=== PATIENT | male | born 1980 | race Two or more races ===

== ENCOUNTER 2017-09-07 23:36 | Emergency (ER) | payer BC ==
[2017-09-07 23:43] VITALS: TEMP 98.1
--- NOTE | 2017-09-08 00:05 | ED ---
Chest Pain HPI - General Chief Complaint: Chest Pain Stated Complaint: Chest Pain Time Seen by Provider: 09/07/17 23:47 Source: patient Mode of arrival: wheelchair Limitations: no limitations - History of Present Illness Initial Comments: This patient is a 37-year-old man who states that yesterday in the afternoon he had the onset of without was heartburn. He indicates the substernal and left side of his chest. He states that it felt somewhat heavy and somewhat burning. I did over the course today go towards his left shoulder and also towards his back. The patient states that the severity is moderate, the pain has been constant, and he has not noted worsening or relieving factors. He did feel a bit lightheaded tonight. He did have a similar episode to this in 2013 while he was in [place], and he was seen in the emergency department where they felt that it was stress related. He did have a stress test at that time which she was told was normal. MD Complaint: chest pain Onset/Timin -: hour(s) Onset: during rest Pain Location: substernal, left chest Pain Radiation: other (Left shoulder) Severity: moderate Quality: heaviness Consistency: constant Improves With: nothing Worsens With: nothing Other Symptoms: other (Lightheaded) Treatments Prior to Arrival: none - Related Data Home Medications Medication Instructions Recorded Confirmed Cyclobenzaprine [Flexeril] 10 mg PO HS 09/07/17 09/07/17 FLUoxetine HCL [PROzac] 80 mg PO DAILY 09/07/17 09/07/17 Allergies Allergy/AdvReac Type Severity Reaction Status Date / Time No Known Allergies Allergy Verified 09/07/17 23:43 Review of Systems ROS Statement: Those systems with pertinent positive or pertinent negative responses have been documented in the HPI. ROS Other: All systems not noted in ROS Statement are negative. Constitutional: Denies: fever, chills, weakness Respiratory: Denies: cough, dyspnea, wheezes Cardiovascular: Reports: chest pain. Denies: palpitations, orthopnea, edema, syncope Gastrointestinal: Denies: abdominal pain, nausea, vomiting Genitourinary: Denies: dysuria, hematuria Musculoskeletal: Denies: back pain Skin: Denies: rash Neurological: Denies: headache, weakness, numbness, paresthesias EKG Findings - EKG Results: EKG: interpreted by ERMD, WNL, sinus rhythm (Rate 75 bpm), normal axis, normal QRS, normal ST/T - NM, Pacemaker, Normal: Normal tracing: normal tracing Past Medical History Past Medical History: No Reported History History of Any Multi-Drug Resistant Organisms: None Reported Additional Past Surgical History / Comment(s): lasik, deviated septum sx. Past Psychological History: Anxiety, Depression, PTSD Smoking Status: Current every day smoker Past Alcohol Use History: Occasional Past Drug Use History: Marijuana General Exam Limitations: no limitations General appearance: alert, in no apparent distress Head exam: Present: atraumatic, normocephalic Eye exam: Present: normal appearance. Absent: scleral icterus, conjunctival injection Respiratory exam: Present: normal lung sounds bilaterally. Absent: respiratory distress, wheezes, rales, rhonchi, stridor, chest wall tenderness Cardiovascular Exam: Present: regular rate, normal rhythm, normal heart sounds. Absent: systolic murmur, diastolic murmur, rubs, gallop GI/Abdominal exam: Present: soft. Absent: distended, tenderness, guarding, rebound, mass Extremities exam: Present: normal inspection, normal capillary refill. Absent: pedal edema, calf tenderness Back exam: Present: normal inspection. Absent: CVA tenderness (R), CVA tenderness (L) Neurological exam: Present: alert Skin exam: Present: warm, dry, intact, normal color. Absent: rash Course Vital Signs 09/07/17 09/08/17 09/08/17 23:38 00:35 01:58 Temperature 98.1 F Pulse Rate 81 84 74 Respiratory 20 18 18 Rate Blood Pressure 180/105 145/91 144/92 O2 Sat by Pulse 98 99 Oximetry Disposition Clinical Impression: Chest pain Disposition: HOME SELF-CARE Condition: Good Instructions: Chest Pain (ED) Additional Instructions: As we discussed, follow-up to arrange the fasting lipid profile, and also to discuss having a stress test with the bench press operator. Return here if there is recurrence of symptoms or if there is any worsening or the symptoms we discussed develop. Referrals: Shivam Silvestre DO [Primary Care Provider] - 1-2 days
[2017-09-08 00:10] LABS: Basophils # (A) 0.1 k/uL (0-0.2); Basophils % (A) 1 %; CHCM 34.2; Eosinophils # (A) 0.2 k/uL (0-0.7); Eosinophils % (A) 2 %; HCT 47.2 % (39.0-53.0); HDW 2.65; HGB 16.9 gm/dL (13.0-17.5); Luc # (Auto) 0.27; Luc % (Auto) 2; Lymphocytes # (A) 5.4 k/uL (1.0-4.8); Lymphocytes % (A) 36 %; MCH 29.4 pg (25.0-35.0); MCHC 35.7 g/dL (31.0-37.0); MCV 82.3 fL (80.0-100.0); Mean Platelet Volume 7.2; Monocytes # (A) 0.5 k/uL (0-1.0); Monocytes % (A) 4 %; Neutrophils # (A) 8.4 k/uL (1.3-7.7); Neutrophils % (A) 57 %; RBC 5.74 m/uL (4.30-5.90); RDW 14.6 % (11.5-15.5); WBC 14.9 k/uL (3.8-10.6); WBC (Perox) 14.93
[2017-09-08] MEDS ORDERED: METOPROLOL TARTRATE 25 MG TAB PO STA (00:17)
[2017-09-08 00:35] LABS: Creatine Kinase 113 U/L (55-170)
[2017-09-08 00:37] VITALS: RESP 18
--- NOTE | 2017-09-08 00:41 | XR ---
EXAM: XR Chest, 2 Views CLINICAL HISTORY: Reason: Chest Pain TECHNIQUE: Frontal and lateral views of the chest. COMPARISON: No relevant prior studies available. FINDINGS: Lungs: Mild peribronchial airspace disease in the lower lobes, slightly worse on the left. No consolidation. Pleural space: Unremarkable. No pneumothorax. Heart: Unremarkable. No cardiomegaly. Mediastinum: Unremarkable. Bones/joints: Unremarkable. IMPRESSION: Findings suggest a mild component of peribronchial infiltrate in the lower lobes, query bronchiolitis.
[2017-09-08 00:49] LABS: Creatine Kinase MB 0.7 ng/mL (0.0-2.4); Troponin I <0.012 ng/mL (0.000-0.034)
[2017-09-08 01:28] LABS: Chloride 106 mmol/L (98-107); Non-African American GFR(MDRD) >60 (>60 ml/min/1.73 sqM); Sodium 140 mmol/L (137-145)
[2017-09-08 01:29] LABS: Anion Gap 14 mmol/L
[2017-09-08 01:37] LABS: Glucose 163 mg/dL (74-99)
[2017-09-08 01:38] LABS: Calcium 10.5 mg/dL (8.4-10.2); Carbon Dioxide 20 mmol/L (22-30); Total Bilirubin 0.4 mg/dL (0.2-1.3); Total Protein 8.2 g/dL (6.3-8.2)
[2017-09-08 01:39] LABS: Blood Urea Nitrogen 16 mg/dL (9-20); Magnesium 1.8 mg/dL (1.6-2.3)
[2017-09-08 01:40] LABS: ALT 68 U/L (21-72); AST 29 U/L (17-59); Alkaline Phosphatase 80 U/L (38-126)
[2017-09-08 01:59] VITALS: BP 144/92; PULSE 74
== END 2017-09-08 02:07 | disposition home or self-care (01) ==
LOC: EC 23:36
DX: R07.9 Chest pain, unspecified (principal); R42 Dizziness and giddiness; F32.9 Major depressive disorder, single episode, unspecified; F41.9 Anxiety disorder, unspecified; F17.200 Nicotine dependence, unspecified, uncomplicated; Z79.899 Other long term (current) drug therapy
CPT/HCPCS: 36415; 71020; 80053; 82550; 82553; 83735; 84484; 85025; 93005; 99285

== ENCOUNTER → 2018-09-29 | Outpatient (CLI) | payer OTHER ==
--- NOTE | 2018-09-30 14:37 | MR ---
EXAMINATION TYPE: MR lumbar spine wo/w con DATE OF EXAM: 09/29/2018 COMPARISON: NONE HISTORY: Pain CONTRAST: 10 mL Gadavist TECHNIQUE: T1 and T2 axial and sagittal, postcontrast T1 sagittal and axial images of the lumbar spi ne are submitted. FINDINGS: There is no abnormal signal seen within the visualized spinal cord or paraspinal soft tissu es. 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 At L2-3 there is no evidence of degenerative disc disease, disc herniation, canal stenosis, or forami nal encroachment. At L3-4 there is no evidence of degenerative disc disease, disc herniation, canal stenosis, or forami nal encroachment. At L4-5 there is no evidence of degenerative disc disease, disc herniation, canal stenosis, or forami nal encroachment. Facet arthropathy noted. At L5-S1 there is loss of disc signal with a broad-based large central and left paracentral disc iza iation with moderate effacement of thecal sac. There likely is compression of the exiting nerve root. Facet arthropathy noted. Could not exclude pars defect of L5. No spondylolisthesis. IMPRESSION: 1. At L5-S1 there is a broad-based large central and left paracentral disc herniation with moderate e ffacement of thecal sac. There likely is compression of the exiting nerve root.
== END | disposition home or self-care (01) ==
LOC: RADMRIMAIN 16:45
DX: M51.27 Other intervertebral disc displacement, lumbosacral region (principal)
CPT/HCPCS: 72158; A9585

== ENCOUNTER 2020-06-01 00:17 | Emergency (ER) | payer OTHER ==
[2020-06-01 00:31] VITALS: BP 158/69; PULSE 71; RESP 16; TEMP 98.5
[2020-06-01] MEDS ORDERED: HYDROcodone/APAP 5-325MG 1 EACH TAB PO STA (00:56)
[2020-06-01] MEDS ORDERED: methylPREDNISolone SOD SUCCI 125 MG/2 ML VIAL IM STA (00:56)
--- NOTE | 2020-06-01 01:11 | XR ---
EXAMINATION TYPE: XR lumbar spine 2 or 3V DATE OF EXAM: 06/01/2020 COMPARISON: NONE HISTORY: Back pain TECHNIQUE: 3 views FINDINGS: Lumbar vertebra have normal alignment. Posterior elements are intact. There is no compressi on fracture. Sacroiliac joints appear intact. There are no pathologic calcifications. IMPRESSION: Negative lumbar spine exam. No fracture.
[2020-06-01] MEDS ORDERED: ACET/COD 300 MG/30 MG STARTER PACK 6 TAB BTL PO STA (01:46)
--- NOTE | 2020-06-01 01:47 | ED ---
General Adult HPI - General Chief complaint: Back Pain/Injury Stated complaint: [facility] back injury Time Seen by Provider: 06/01/20 00:32 Source: patient, RN notes reviewed, old records reviewed Mode of arrival: ambulatory Limitations: no limitations - History of Present Illness Initial comments: 39-year-old male patient passed history chronic back pain proceeded evaluation. 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 Patient was that left her lumbar back pain radiating down since. Patient reports that today he twisted in bed and he had some more pain shooting down his left leg. Denies any saddle anesthesia loss bowel or bladder control any red flag symptoms. Systemic: Pt denies fatigue, fever/chills, rash. Pt denies weakness, night sweats, weight loss. Neuro: Pt denies headache, visual disturbances, syncope or pre-syncope. HEENT: Pt denies ocular discharge or irritation, otalgia, rhinorrhea, pharyngitis or notable lymphadenopathy. Cardiopulmonary: Pt denies chest pain, SOB, heart palpitations, dyspnea on exertion. Abdominal/GI: Pt denies abdominal pain, n/v/d. : Pt denies dysuria, burning w/ urination, frequency/urgency. Denies new onset urinary or bowel incontinence. MSK: Pt denies loss of strength or function in extremities. Neuro: Pt denies new onset weakness, paresthesias. - Related Data Home Medications Medication Instructions Recorded Confirmed Cyclobenzaprine [Flexeril] 10 mg PO HS 09/07/17 09/07/17 FLUoxetine HCL [PROzac] 80 mg PO DAILY 09/07/17 09/07/17 Previous Rx's Medication Instructions Recorded predniSONE 50 mg PO DAILY #5 tab 06/01/20 Allergies Allergy/AdvReac Type Severity Reaction Status Date / Time No Known Allergies Allergy Verified 06/01/20 00:31 Review of Systems ROS Statement: Those systems with pertinent positive or pertinent negative responses have been documented in the HPI. ROS Other: All systems not noted in ROS Statement are negative. Past Medical History Past Medical History: No Reported History Additional Past Medical History / Comment(s): chronic back pain, DDD, disc herniations History of Any Multi-Drug Resistant Organisms: None Reported Additional Past Surgical History / Comment(s): lasik, deviated septum sx. Past Psychological History: Anxiety, Depression, PTSD Smoking Status: Current every day smoker Past Alcohol Use History: Occasional Past Drug Use History: Marijuana General Exam - General Exam Comments Initial Comments: Constitutional: NAD, AOX3, Pt has pleasant affect. HEENT: NC/AT, trachea midline, neck supple, no lymphadenopathy. External ears appear normal, without discharge. Mucous membranes moist. Eyes PERRLA, EOM intact. There is no scleral icterus. No pallor noted. Cardiopulmonary: RRR, no murmurs, rubs or gallops, no JVD noted. Lungs CTAB in anterior and posterior zapata. No peripheral edema. Abdominal exam: Abdomen soft and non-distended. Neuro: CN II-XII grossly intact. No nuchal rigidity. MSK: 5/5 strength psoas and quadriceps muscles.. Sensation intact in upper and lower extremities. Full active ROM in upper and lower extremities, 5/5 stregnth. Limitations: no limitations Course Vital Signs 06/01/20 06/01/20 00:28 02:29 Temperature 98.5 F 98.5 F Pulse Rate 71 71 Respiratory 16 16 Rate Blood Pressure 158/69 158/69 O2 Sat by Pulse 99 99 Oximetry Medical Decision Making - Medical Decision Making 39-year-old male patient presents ED evaluation low back pain. Patient has a history of this. Patient will signs stable, afebrile. Physical exam displayed some tach strength and sensation. When film negative for acute process. Patient's symptoms improved analgesia as he does have some radicular symptoms to initiate lumbar steroid treatment will discharge the patient orthopedic follow- up. Case discussed with Dr. Hu. Disposition Clinical Impression: Lumbar back pain Disposition: HOME SELF-CARE Condition: Stable Instructions (If sedation given, give patient instructions): Acute Low Back Pain (ED) Additional Instructions: Follow-up with primary care provider tomorrow. Follow-up orthopedic consult tomorrow. Take steroids as directed. Return to ER if any worsening symptoms. Prescriptions: predniSONE 50 mg PO DAILY #5 tab Is patient prescribed a controlled substance at d/c from ED?: No Referrals: [facility],Clinic [Primary Care Provider] - 1-2 days Darren Palmer DO [Doctor of Osteopathic Medicine] - 1-2 days
[2020-06-01] MEDS ORDERED: KETOROLAC 15 MG/ML 1 ML VIAL IM STA (02:15)
== END 2020-06-01 02:30 | disposition home or self-care (01) ==
LOC: EC 00:17
DX: M54.5 Low back pain (principal); F41.9 Anxiety disorder, unspecified; F32.9 Major depressive disorder, single episode, unspecified; F17.200 Nicotine dependence, unspecified, uncomplicated; Z79.899 Other long term (current) drug therapy
CPT/HCPCS: 72100; 99284; 96372 ×2; J2930; J1885

== ENCOUNTER 2020-09-07 16:00 | Emergency (ER) | payer OTHER ==
[2020-09-07 16:04] VITALS: TEMP 98.3
--- NOTE | 2020-09-07 16:20 | ED ---
Chest Pain HPI - General Chief Complaint: Chest Pain Stated Complaint: chest pain/SOB Time Seen by Provider: 09/07/20 16:05 Source: patient Mode of arrival: wheelchair Limitations: no limitations - History of Present Illness Initial Comments: Patient is a 40-year-old male with past medical history of PTSD and chronic back pain who presents to the emergency department with reported presyncope and chest pain. Patient states that approximately one hour to hospital arrival the patient was having a bowel movement. States that he had been extremely stressed out from events that had happened earlier in the day. Does admit that he suffers from panic attacks. Reports that he began having tunnel vision and thought he was given a pass out. He started having palpitations, chest pain or shortness of breath. Patient denies full syncopal. episode Reports that since hospital arrival he feels much improved. Denies previous history of cardiac disease. No history of DVT or PE. Denies family history of premature cardiac . No associated nausea or vomiting. Denies abdominal pain. No black, tarry or sticky stools. No other alleviating, precipitating or modifying factors - Related Data Home Medications Medication Instructions Recorded Confirmed Cyclobenzaprine [Flexeril] 10 mg PO HS 09/07/17 09/07/17 FLUoxetine HCL [PROzac] 80 mg PO DAILY 09/07/17 09/07/17 Previous Rx's Medication Instructions Recorded predniSONE 50 mg PO DAILY #5 tab 06/01/20 LORazepam [Ativan] 0.5 mg PO TID PRN 3 Days #9 tab 09/07/20 Allergies Allergy/AdvReac Type Severity Reaction Status Date / Time No Known Allergies Allergy Verified 09/07/20 16:04 Review of Systems ROS Statement: Those systems with pertinent positive or pertinent negative responses have been documented in the HPI. ROS Other: All systems not noted in ROS Statement are negative. EKG Findings - EKG Comments: EKG Findings:: EKG demonstrates a sinus rhythm with a ventricular rate of 87.. ME interval 162. QRS 82. QTC of 425. No acute ST segment elevations or depressions concerning for ischemic changes Past Medical History Past Medical History: No Reported History Additional Past Medical History / Comment(s): chronic back pain, DDD, disc herniations History of Any Multi-Drug Resistant Organisms: None Reported Additional Past Surgical History / Comment(s): lasik, deviated septum sx. Past Psychological History: Anxiety, Depression, PTSD Smoking Status: Current every day smoker Past Alcohol Use History: Occasional Past Drug Use History: Marijuana General Exam Limitations: no limitations General appearance: alert, in no apparent distress Head exam: Present: atraumatic, normocephalic, normal inspection Eye exam: Present: normal appearance, PERRL, EOMI. Absent: scleral icterus, conjunctival injection, periorbital swelling ENT exam: Present: normal exam, mucous membranes moist Neck exam: Present: normal inspection. Absent: tenderness, meningismus, l ymphadenopathy Respiratory exam: Present: normal lung sounds bilaterally. Absent: respiratory distress, wheezes, rales, rhonchi, stridor Cardiovascular Exam: Present: regular rate, normal rhythm, normal heart sounds. Absent: systolic murmur, diastolic murmur, rubs, gallop, clicks GI/Abdominal exam: Present: soft, normal bowel sounds. Absent: distended, tenderness, guarding, rebound, rigid Extremities exam: Present: normal inspection, full ROM, normal capillary refill. Absent: tenderness, pedal edema, joint swelling, calf tenderness Back exam: Present: normal inspection Neurological exam: Present: alert, oriented X3, CN II-XII intact Psychiatric exam: Present: normal affect, normal mood Skin exam: Present: warm, dry, intact, normal color. Absent: rash Course Vital Signs 09/07/20 09/07/20 09/07/20 16:02 16:15 17:49 Temperature 98.3 F Pulse Rate 96 87 79 Respiratory 20 16 16 Rate Blood Pressure 184/112 124/85 O2 Sat by Pulse 99 98 99 Oximetry 09/07/20 18:05 Temperature 98.3 F Pulse Rate 79 Respiratory 16 Rate Blood Pressure 124/85 O2 Sat by Pulse 99 Oximetry Chest Pain MDM - MDM On arrival patient is placed in room 20. A thorough history and physical exam was performed. 12-lead EKG was performed. Laboratory studies are conducted the patient went for chest x-ray. Chest x-ray demonstrates no acute findings. Results are discussed the patient. We did repeat a blood pressure which is markedly improved. I discussed diagnosis, differential and treatment options. Patient is requesting something for anxiety to have at home. Patient will be given a limited prescription for Ativan. He is instructed on the proper use as well as the side effect profile. I did recommend that the patient have a repeat ultrasound of his heart. Patient states he has had recent stress testing within the past 3 years. He needs to see his primary care doctor in 2-4 days. Return to the emergency room for any new or worsening symptoms. Disposition Clinical Impression: Chest pain, Palpitations Disposition: HOME SELF-CARE Condition: Stable Instructions (If sedation given, give patient instructions): Chest Pain (ED) Additional Instructions: Please follow-up with your primary care doctor. I recommend a stress test and an echo. Return to the ED for any new or worsening symptoms. Prescriptions: LORazepam [Ativan] 0.5 mg PO TID PRN 3 Days #9 tab PRN Reason: Anxiety Is patient prescribed a controlled substance at d/c from ED?: Yes When asked, does pt state using other controlled substances?: No If prescribed controlled substance>3 days was MAPS reviewed?: Prescribed <3 Days Referrals: [facility],Clinic [Primary Care Provider] - 1-2 days Time of Disposition: 17:59
[2020-09-07 17:00] VITALS: RESP 16
[2020-09-07 17:01] LABS: Basophils # (A) 0.1 k/uL (0-0.2); Basophils % (A) 1 %; Eosinophils # (A) 0.1 k/uL (0-0.7); Eosinophils % (A) 1 %; HGB 16.3 gm/dL (13.0-17.5); Lymphocytes # (A) 2.6 k/uL (1.0-4.8); Lymphocytes % (A) 28 %; MCH 29.2 pg (25.0-35.0); MCHC 35.5 g/dL (31.0-37.0); MCV 82.3 fL (80.0-100.0); Mean Platelet Volume 7.3; Monocytes # (A) 0.4 k/uL (0-1.0); Monocytes % (A) 4 %; Neutrophils # (A) 6.1 k/uL (1.3-7.7); Neutrophils % (A) 65 %; Platelet Count 263 k/uL (150-450); RBC 5.59 m/uL (4.30-5.90); RDW 13.2 % (11.5-15.5); WBC 9.4 k/uL (3.8-10.6)
[2020-09-07 17:11] LABS: INR 0.9 (<1.2); Partial Thromboplastin Time 24.5 sec (22.0-30.0); Prothrombin Time 9.9 sec (9.0-12.0)
--- NOTE | 2020-09-07 17:11 | XR ---
EXAMINATION TYPE: XR chest 2V DATE OF EXAM: 09/07/2020 COMPARISON: 09/08/2017 HISTORY: Chest pain TECHNIQUE: FINDINGS: Heart and mediastinum are normal. Lungs are clear. Diaphragm is normal. Bony thorax appears normal. IMPRESSION: Normal chest. No change.
[2020-09-07 17:14] LABS: ALT 33 U/L (4-49); AST 23 U/L (17-59); African American GFR (CKD) >90 (>60 ml/min/1.73 sqM); Albumin 4.5 g/dL (3.5-5.0); Alkaline Phosphatase 66 U/L (38-126); Anion Gap 7 mmol/L; Blood Urea Nitrogen 12 mg/dL (9-20); Calcium 9.4 mg/dL (8.4-10.2); Carbon Dioxide 22 mmol/L (22-30); Chloride 110 mmol/L (98-107); Glucose 178 mg/dL (74-99); Lipase 149 U/L (23-300); Magnesium 1.9 mg/dL (1.6-2.3); Non-African American GFR(CKD) >90 (>60 ml/min/1.73 sqM); Potassium 4.5 mmol/L (3.5-5.1); Sodium 139 mmol/L (137-145); Total Bilirubin 0.4 mg/dL (0.2-1.3); Total Protein 7.6 g/dL (6.3-8.2)
[2020-09-07 17:49] VITALS: BP 124/85; PULSE 79
== END 2020-09-07 18:09 | disposition home or self-care (01) ==
LOC: EC 16:00
DX: R07.9 Chest pain, unspecified (principal); R00.2 Palpitations; F17.200 Nicotine dependence, unspecified, uncomplicated; F41.9 Anxiety disorder, unspecified; F32.9 Major depressive disorder, single episode, unspecified; F43.10 Post-traumatic stress disorder, unspecified; Z79.899 Other long term (current) drug therapy
CPT/HCPCS: 36415; 71046; 80053; 83690; 83735; 84484; 85025; 85610; 85730; 93005; 99285